=== PATIENT | female | born 1995 | race Caucasian/White ===

== ENCOUNTER 2016-11-25 09:46 | Inpatient (IN) ==
[2016-11-25 10:10] LABS: BLOOD URINE NEGATIVE (NEGATIVE); COLOR AMBER; GLUCOSE URINE NEGATIVE (NEGATIVE); LEUKOCYTES URINE 1+ (NEGATIVE); NITRITE URINE NEGATIVE (NEGATIVE); URINE SOURCE VOIDED; UROBILINOGEN URINE NORMAL
[2016-11-25] MEDS ORDERED: ZOFRAN IV PRN (10:32)
[2016-11-25] MEDS ORDERED: PEPCID PO PRN (10:32)
[2016-11-25] MEDS ORDERED: PITOCIN 30 UNITS/LR 30 UNITS/500 ML IV.SOLN IV SCH (10:32)
[2016-11-25] MEDS ORDERED: PEPCID IV PRN (10:32)
[2016-11-25] MEDS ORDERED: TYLENOL PO PRN (10:32)
[2016-11-25] MEDS ORDERED: STADOL IV PRN (10:32)
[2016-11-25] MEDS ORDERED: PEPCID PO ONE (10:32)
[2016-11-25] MEDS ORDERED: KEFZOL 1 GM/D5W 1 GM/50 ML IVPB IV PRN (10:32)
[2016-11-25] MEDS ORDERED: REGLAN PO ONE (10:32)
[2016-11-25] MEDS ORDERED: SODIUM CHLORIDE 0.9% INJ SCH (10:45)
[2016-11-25] MEDS ORDERED: MINERAL OIL PO ONE (11:07)
[2016-11-25] MEDS ORDERED: XYLOCAINE-MPF 1% INJ ONE (11:07)
[2016-11-25] MEDS: LR 1,000 ML IV SCH ×2 (11:10→11:51)
[2016-11-25 11:23] LABS: MANUAL DIFF NEEDED? NO
[2016-11-25 11:24] LABS: BASO% 0.1 % (0.0-0.8); EOS# 0.03 X1000 (0.0-0.7); EOS% 0.4 % (0.0-10.0); HEMATOCRIT 36.3 % (37.0-47.0); HEMOGLOBIN 12.1 g/dL (12.0-16.0); IMM GRAN# 0.01 X1000 (0.0-0.04); IMM GRAN% 0.1 % (0.0-0.5); LYMPH# 2.18 X1000 (1.2-3.4); MCHC 33.3 g/dL (33-37); MCV 89.9 FL (81-99); MONO# 0.56 X1000 (0.11-0.59); MONO% 7.4 % (1.7-9.3); MPV 10.3 FL (7.4-10.4); PLT 223 X1000 (130-400); RBC 4.04 XMIL (4.2-5.4)
[2016-11-25 11:29] LABS: UR AMPHETAMINES QUAL PRESUMPTIVE POSITIVE (NONE DETECT); UR BARBITUATES QUAL NONE DETECTED (NONE DETECT); UR BENZODIAZEPIN QUAL NONE DETECTED (NONE DETECT); UR CANNABINOIDS QUAL NONE DETECTED (NONE DETECT); UR COCAINE QUAL NONE DETECTED (NONE DETECT); UR MDMA QUAL NONE DETECTED (NONE DETECT); UR METHADONE QUAL NONE DETECTED (NONE DETECT); UR METHAMPHETAMINE QUAL PRESUMPTIVE POSITIVE (NONE DETECT); UR OPIATES QUAL NONE DETECTED (NONE DETECT); UR OXYCODONE QUAL NONE DETECTED (NONE DETECT); UR PCP QUAL NONE DETECTED (NONE DETECT); UR TCA QUAL NONE DETECTED (NONE DETECT)
[2016-11-25] MEDS ORDERED: NAROPIN 0.2% EPIDURAL PRN (11:37)
[2016-11-25] MEDS ORDERED: FENTANYL IV ONE (11:45)
[2016-11-25] MEDS ORDERED: NAROPIN 0.2% INJ ONE (11:45)
[2016-11-25] MEDS ORDERED: FENTANYL-BUPIV-NS 2 MCG-0.1% 200 ML EPIDURAL SCH (12:00)
[2016-11-25] MEDS ORDERED: EPINEPHRINE ONE (12:40)
[2016-11-25] MEDS ORDERED: EPHEDRINE ONE (13:06)
[2016-11-25] MEDS ORDERED: BENADRYL IV PRN (15:52)
[2016-11-25] MEDS ORDERED: XYLOCAINE-MPF 1% INJ PRN (15:52)
[2016-11-25] MEDS ORDERED: PITOCIN 30 UNITS/LR 30 UNITS/500 ML IV.SOLN IV ONE (15:52)
[2016-11-25] MEDS ORDERED: BENADRYL PO PRN (15:52)
[2016-11-25] MEDS ORDERED: MINERAL OIL PO PRN (15:52)
[2016-11-25] MEDS ORDERED: CYTOTEC PO PRN (15:52)
[2016-11-25] MEDS ORDERED: HYDROXYZINE PO PRN (15:52)
[2016-11-25] MEDS ORDERED: BOOSTRIX VACCINE IM ONE (15:52)
[2016-11-25] MEDS ORDERED: HYDROXYZINE IM PRN (15:52)
[2016-11-25] MEDS ORDERED: M-M-R II VACCINE SUBQ ONE (15:52)
[2016-11-25] MEDS ORDERED: PITOCIN 20 UNITS/LR 20 UNITS/1,000 ML IV.SOLN IV SCH (15:52)
[2016-11-25] MEDS ORDERED: NORCO-5 PO PRN (15:52)
[2016-11-25] MEDS ORDERED: PITOCIN IM PRN (15:52)
[2016-11-25] MEDS ORDERED: PERI MEDS (DERMOPLAST/NUPERCAINAL/TUCKS) MISC PRN (15:52)
[2016-11-25] MEDS ORDERED: AMBIEN PO PRN (15:52)
[2016-11-25] MEDS ORDERED: PERICOLACE PO SCH (21:00)
[2016-11-25 21:40] LABS: BILIRUBIN URINE 1+ (NEGATIVE); CLARITY CLEAR (CLEAR); PH URINE 6.5; PROTEIN URINE TRACE mg/dL (NEGATIVE)
[2016-11-25] MEDS: MOTRIN PO PRN (23:32)
[2016-11-25] MEDS: NORCO-10 PO PRN (23:33)
--- NOTE | 2016-11-26 04:32 | OPERATIVE NOTE ---
PROCEDURE DATE: 11/25/2016 DELIVERY NOTE: The patient underwent sterile controlled spontaneous vaginal delivery of a viable male infant, weighing 6 pounds, 6 ounces with Apgars of 9 and 10. Loose nuchal x1 reduced at perineum. No dystocia. Cord doubly clamped and cut. The infant handed off to the waiting pediatric staff. Placenta delivered spontaneously and intact. Of note, the patient did have a true knot in the umbilical cord. Uterus was firm with Pitocin and massage. Uterus, cervix, and vagina explored. No lacerations noted. Patient tolerated the procedure well. Transferred to recovery in stable condition. cc: Ce Witt MD
[2016-11-26 06:03] LABS: HEMATOCRIT 34.9 % (37.0-47.0); HEMOGLOBIN 11.3 g/dL (12.0-16.0); MCH 29.8 PG (27-31); MCHC 32.4 g/dL (33-37); MCV 92.1 FL (81-99); MPV 10.9 FL (7.4-10.4); RBC 3.79 XMIL (4.2-5.4)
[2016-11-26] MEDS: MOTRIN PO PRN ×2 (08:14→16:06)
[2016-11-26] MEDS: NORCO-10 PO PRN ×2 (08:15→16:07)
[2016-11-27] MEDS: MOTRIN PO PRN ×2 (06:59→14:56)
[2016-11-27 08:18] VITALS: BP 131/78
[2016-11-27] MEDS: NORCO-10 PO PRN (14:56)
== END 2016-11-27 15:45 | disposition home or self-care (01) ==
LOC: P.OPLD 09:46 → P.LD 09:48
PROVIDERS: ADMIT Obstetrics & Gynecology; ATTEND Obstetrics & Gynecology